=== PATIENT | male | born 1945 | race Caucasian/White ===

== ENCOUNTER 2017-04-16 16:27 | Inpatient (IN) | payer OTHER, MEDICARE ==
[~2017-04-16] VITALS: Ht 180.3 cm; Wt 79.3 kg
[~2017-04-16 16:27] MED LIST: DILA2TAB4 PO; IBUP600 PO; PROM25SU8 PO; TAMS0.4C67 PO
[2017-04-16 16:53] VITALS: BP 119/69; PULSE 110; RESP 18; TEMP 98.3; O2SAT 93
--- NOTE | 2017-04-16 17:34 | PD ---
HPI Chief Complaint: Musculoskeletal Complaint Time Seen by Provider: 17:29 Travel History International Travel<30 days: No Contact w/Intl Traveler<30days: No Traveled to known affect area: No History of Present Illness HPI 71 y/m presents to emergency department with left lower rib and left shoulder pain since yesterday. Patient denies any inciting events to cause this pain however he is concerned about a pulmonary embolism because his brother had one after a knee replacement surgery. States that the rib pain occurs with deep breaths or movement. States that he has a dull left shoulder pain that is constant and achy. States he gets muscle spasms of his calves especially in the morning but this has been a chronic issue. Patient denies cough, hemoptysis , dyspnea, orthopnea, trauma. Patient denies fever, chills, chest pain, shortness of breath, pain, abdominal pain. Denies any chronic medical issues and chronic medications. He denies recent travel, immobilizations, or surgeries. Patient follows Dr. Cole in [place]. [facility] Past Medical History Diminished Hearing: No Musculoskeletal: Yes (chronic pain) Tetanus Vaccination: Unknown ?: Not Past Surgical History Eye Surgery: Yes (bi lat cataract ) Social History Alcohol Use: No Tobacco Use: No Substance Use: No Allergies-Medications (Allergen,Severity, Reaction): Coded Allergies: No Known Allergies (Unverified , 01/21/14) Reported Meds & Prescriptions Reported Meds & Active Scripts Active Review of Systems Except as stated in HPI: all other systems reviewed are Neg Physical Exam Narrative GENERAL: Well-developed well-nourished SKIN: Focused skin assessment warm/dry. HEAD: Atraumatic. Normocephalic. EYES: Pupils equal and round. No scleral icterus. No injection or drainage. ENT: No nasal bleeding or discharge. Mucous membranes pink and moist. NECK: Trachea midline. No JVD. CARDIOVASCULAR: Regular rate and rhythm. No murmur appreciated. RESPIRATORY: No accessory muscle use. decreased breath sounds bilateral lower lobes, rhonchi bilateral upper lobes GASTROINTESTINAL: Abdomen soft, non-tender, nondistended. MUSCULOSKELETAL: No obvious deformities. No clubbing. No cyanosis. No edema. TTP of the left lower axillary ribs without crepitus. Left shoulder nontender to palpation or range of motion. Homans sign negative bilaterally. NEUROLOGICAL: Awake and alert. No obvious cranial nerve deficits. Motor grossly within normal limits. Normal speech. PSYCHIATRIC: Appropriate mood and affect; insight and judgment normal. Data Data Last Documented VS Vital Signs Date Time Temp Pulse Resp B/P (MAP) Pulse Ox O2 Delivery O2 Flow Rate FiO2 04/16/17 20:13 83 16 150/76 (100) 94 04/16/17 16:53 98.3 Orders Orders Chest, Pa & Lat (04/16/17 ) Ketorolac Inj (Toradol Inj) (04/16/17 18:15) Complete Blood Count With Diff (04/16/17 18:44) Comprehensive Metabolic Panel (04/16/17 18:44) Iv Access Insert/Monitor (04/16/17 18:44) Ecg Monitoring (04/16/17 18:44) Oximetry (04/16/17 18:44) Oxygen Administration (04/16/17 18:44) Sodium Chloride 0.9% Flush (Ns Flush) (04/16/17 18:45) Act Partial Throm Time (Ptt) (04/16/17 18:44) Prothrombin Time / Inr (Pt) (04/16/17 18:44) Ct Pulmonary Angiogram (04/16/17 ) Electrocardiogram (04/16/17 ) Bilateral Bp Monitoring (04/16/17 20:27) Sodium Chloride 0.9% Flush (Ns Flush) (04/16/17 20:30) B-Type Natriuretic Peptide (04/16/17 20:27) Ckmb (Isoenzyme) Profile (04/16/17 19:13) Magnesium (Mg) (04/16/17 19:13) Troponin I (04/16/17 19:13) Lipase (04/16/17 19:13) Iohexol 350 Inj (Omnipaque 350 Inj) (04/16/17 20:41) Enoxaparin Inj (Lovenox Inj) (04/16/17 21:30) Lipid Profile (04/17/17 06:00) Enoxaparin Inj (Lovenox Inj) (04/17/17 09:00) Budeson-Formot 160-4.5 Mg Inh (Symbicort (04/17/17 09:00) Albuterol-Ipratropium Neb (Duoneb Neb) (04/16/17 22:00) Echo 2d Comp With Doppler (04/16/17 ) Admit To Inpatient (04/16/17 ) Vital Signs (Adult) Q4H (04/16/17 21:56) Activity Oob With Assistance (04/16/17 21:56) Fitting Room Checker / Telemetry .CONTINUOUS (04/16/17 21:56) Intake + Output PJ.QSHIFT (04/16/17 21:56) Diet Regular Basic (04/17/17 Breakfast) Sodium Chloride 0.9% Flush (Ns Flush) (04/16/17 22:00) Sodium Chloride 0.9% Flush (Ns Flush) (04/17/17 09:00) Ondansetron Inj (Zofran Inj) (04/16/17 22:00) Comprehensive Metabolic Panel (04/17/17 06:00) Complete Blood Count With Diff (04/17/17 06:00) Troponin I (04/17/17 00:00) Troponin I (04/17/17 06:00) Acetaminophen (Tylenol) (04/16/17 22:00) Acetamin-Hydrocod 325-5 Mg ([place] 5-325 (04/16/17 22:00) Morphine Inj (Morphine Inj) (04/16/17 22:00) Docusate Sodium-Senna (Elsa-Colace) (04/17/17 09:00) Magnesium Hydroxide Liq (Milk Of Magnesi (04/16/17 22:00) Sennosides (Senokot) (04/16/17 22:00) Bisacodyl Supp (Dulcolax Supp) (04/16/17 22:00) Lactulose Liq (Lactulose Liq) (04/16/17 22:00) Inpatient Certification (04/16/17 ) Famotidine Inj (Pepcid Inj) (04/16/17 23:00) Lipase (04/17/17 06:00) Hemoglobin (Hgb) A1c (04/17/17 06:00) Thyroid Stimulating Hormone (04/17/17 06:00) Admit Order (Ed Use Only) (04/16/17 21:58) Labs Laboratory Tests Test 04/16/17 19:13 White Blood Count 6.8 TH/MM3 Red Blood Count 4.85 MIL/MM3 Hemoglobin 13.6 GM/DL Hematocrit 41.3 % Mean Corpuscular Volume 85.1 FL Mean Corpuscular Hemoglobin 28.1 PG Mean Corpuscular Hemoglobin Concent 33.0 % Red Cell Distribution Width 12.0 % Platelet Count 296 TH/MM3 Mean Platelet Volume 6.4 FL Neutrophils (%) (Auto) 68.4 % Lymphocytes (%) (Auto) 19.8 % Monocytes (%) (Auto) 6.5 % Eosinophils (%) (Auto) 4.8 % Basophils (%) (Auto) 0.5 % Neutrophils # (Auto) 4.8 TH/MM3 Lymphocytes # (Auto) 1.3 TH/MM3 Monocytes # (Auto) 0.4 TH/MM3 Eosinophils # (Auto) 0.3 TH/MM3 Basophils # (Auto) 0.0 TH/MM3 CBC Comment DIFF FINAL Differential Comment Prothrombin Time 10.7 SEC Prothromb Time International Ratio 1.0 RATIO Activated Partial Thromboplast Time 28.9 SEC Blood Urea Nitrogen 12 MG/DL Creatinine 1.20 MG/DL Random Glucose 90 MG/DL Total Protein 7.2 GM/DL Albumin 3.2 GM/DL Calcium Level 8.1 MG/DL Magnesium Level 2.1 MG/DL Alkaline Phosphatase 101 U/L Aspartate Amino Transf (AST/SGOT) 20 U/L Alanine Aminotransferase (ALT/SGPT) 26 U/L Total Bilirubin 0.6 MG/DL Sodium Level 137 MEQ/L Potassium Level 3.7 MEQ/L Chloride Level 102 MEQ/L Carbon Dioxide Level 29.2 MEQ/L Anion Gap 6 MEQ/L Estimat Glomerular Filtration Rate 59 ML/MIN Total Creatine Kinase 78 U/L Troponin I LESS THAN 0.02 NG/ML B-Type Natriuretic Peptide 18 PG/ML Lipase 2171 U/L [facility] Medical Decision Making Medical Screen Exam Complete: Yes Emergency Medical Condition: Yes Differential Diagnosis Costochondritis versus pneumonia versus pulmonary embolism Left shoulder contusion versus strain versus sprain Narrative Course 71-year-old male presents to emergency department complaining of left shoulder pain and left lower axillary rib pain since yesterday. States that he is concerned about his symptoms because his brother had a pulmonary embolism post TKA. Pt denies fever, chills, chest pain, cough, shortness of breath, orthopnea , nausea, vomiting, diarrhea. Also denies recent travel, immobilization, surgeries, fractures. Patient initially denied any medical history but after the labs returned, admitted to hypertriglyceridemia and elevated lipase. Patient states his heart rate runs between 80 and 105 normally. Physical exam demonstrated there is palpation of the lower left axillary ribs. Shoulder exam unremarkable- unable to elicit the pain patient describes. Bilateral lungs, decreased breath sounds lower lobes with rhonchi. Chest x-ray demonstrates diffuse infiltrate and effusions. Vital signs- initially tachycardic but stabilized at 88. SaO2 93-94 consistently. BP WNL. EKG- RBBB, unknown age of this Labs- elevated lipase over 2100. CT pulmonary angiogram demonstrates bilateral pulmonary embolism. Will initiate Lovenox 80 units. Will admit for non-massive pulmonary embolus. Diagnosis Primary Impression: Pulmonary embolism Qualified Codes: I26.99 - Other pulmonary embolism without acute cor pulmonale Additional Impression: Elevated lipase Admitting Information Admitting Physician Requests: Admit Condition: Stable Jessica Costello Apr 16, 2017 17:34
[2017-04-16] MEDS ORDERED: KETOROLAC TROMETHAMINE 60 MG/2 ML (IM) VIAL IM ONE (18:15)
--- NOTE | 2017-04-16 18:24 | RADRPT ---
EXAM DATE/TIME: 04/16/2017 18:07 [facility] COMPARISON: No previous studies available for comparison. INDICATIONS : Chest and rib pain from unknown injury. MEDICAL HISTORY : None. SURGICAL HISTORY : None. ENCOUNTER: Initial ACUITY: 1 day PAIN SCORE: 10/10 LOCATION: Bilateral chest FINDINGS: Bilateral basilar infiltrates and effusions. Visualized cardiac contours are grossly satisfactory. Th oracic skeleton is grossly intact. CONCLUSION: Bibasilar infiltrates and effusions Bk Dodd MD on April 16, 2017 at 18:21 Board Certified Radiologist. This report was verified electronically.
[2017-04-16] MEDS ORDERED: SODIUM CHLORIDE 0.9% FLUSH 10 ML FLUSH IVF PRN ×2 (18:45→20:30)
[2017-04-16 19:18] VITALS: O2SAT 95
[2017-04-16 19:23] LABS: AUTOMATED NEUTROPHIL # 4.8 TH/MM3 (1.8-7.7); BASOPHIL % 0.5 % (0.0-2.0); EOSINOPHIL # 0.3 TH/MM3 (0-0.4); EOSINOPHIL % 4.8 % (0.0-4.0); HEMATOCRIT 41.3 % (39.0-51.0); HEMO FLAGS DIFF FINAL; LYMPH % 19.8 % (9.0-44.0); LYMPHOCYTE # 1.3 TH/MM3 (1.0-4.8); MEAN CELL VOLUME 85.1 FL (80.0-100.0); MEAN CORPUSCULAR HEMOGLOBIN 28.1 PG (27.0-34.0); MONO % 6.5 % (0.0-8.0); NEUT % 68.4 % (16.0-70.0); PLATELET COUNT 296 TH/MM3 (150-450); RED BLOOD COUNT 4.85 MIL/MM3 (4.50-5.90); WHITE BLOOD COUNT 6.8 TH/MM3 (4.0-11.0)
[2017-04-16 19:28] LABS: CHLORIDE 102 MEQ/L (98-107); POTASSIUM 3.7 MEQ/L (3.5-5.1); SODIUM (NA) 137 MEQ/L (136-145)
[2017-04-16 19:32] LABS: ANION GAP 6 MEQ/L (5-15); BICARBONATE 29.2 MEQ/L (21.0-32.0); BLOOD UREA NITROGEN 12 MG/DL (7-18)
[2017-04-16 19:34] LABS: APTT (PATIENT) 28.9 SEC (24.3-30.1); PROTHROMBIN TIME - PATIENT 10.7 SEC (9.8-11.6)
[2017-04-16 19:35] LABS: ALT (GPT) 26 U/L (12-78); AST (GOT) 20 U/L (15-37)
[2017-04-16 19:36] LABS: GLOMERULAR FILTRATION RATE 59 ML/MIN (>89)
[2017-04-16 19:37] LABS: TOTAL BILIRUBIN ADULT 0.6 MG/DL (0.2-1.0)
[2017-04-16 19:38] LABS: ALKALINE PHOSPHATASE 101 U/L (45-117)
[2017-04-16 20:13] VITALS: BP 150/76; PULSE 83; RESP 16; O2SAT 94
[2017-04-16 20:40] LABS: MAGNESIUM 2.1 MG/DL (1.5-2.5)
[2017-04-16] MEDS ORDERED: IOHEXOL 350 MG/ML 10 ML VIAL (for RAD DIAG) IVCONTRAST ONE (20:41)
[2017-04-16 20:47] LABS: CREATINE KINASE 78 U/L (39-308)
--- NOTE | 2017-04-16 21:05 | RADRPT ---
EXAM DATE/TIME: 04/16/2017 20:30 [facility] COMPARISON: No previous studies available for comparison. INDICATIONS : Right shoulder and right upper back pain. IV CONTRAST: 65 cc Omnipaque 350 (iohexol) IV RADIATION DOSE: 12.64 CTDIvol (mGy) MEDICAL HISTORY : None SURGICAL HISTORY : None. ENCOUNTER: Initial ACUITY: 1 day PAIN SCALE: 7/10 LOCATION: Right chest TECHNIQUE: Volumetric scanning of the chest was performed using a pulmonary embolism protocol MIP images were re constructed. Using automated exposure control and adjustment of the mA and/or kV according to patien t size, radiation dose was kept as low as reasonably achievable to obtain optimal diagnostic quality images. DICOM format image data is available electronically for review and comparison. Follow-up recommendations for detected pulmonary nodules are based at a minimum on nodule size and pa tient risk factors according to Fleischner Society Guidelines. FINDINGS: PULMONARY ARTERIES: There are filling defects in the upper and lower lobe pulmonary branch vessels on the right and in lo wer lobe branch vessels on the left.. No large central clot is identified. LUNGS: There are consolidative changes in the posterior lung bases bilaterally and to a mild degree in the l ingula. Mild basilar bronchiectasis. PLEURAE: Small left effusion MEDIASTINUM: Nonspecific prominence of central mediastinal lymph nodes. MUSCULOSKELETAL: Within normal limits for patient age. CONCLUSION: Bilateral pulmonary embolism Bk Dodd MD on April 16, 2017 at 21:01 Board Certified Radiologist. This report was verified electronically.
[2017-04-16] MEDS ORDERED: ENOXAPARIN SODIUM 80 MG/0.8 ML SYRINGE SQ ONE (21:30)
[2017-04-16] MEDS ORDERED: BISACODYL 10 MG SUPP RECTAL PRN (22:00)
[2017-04-16] MEDS ORDERED: SENNOSIDES 8.6 MG TAB PO PRN (22:00)
[2017-04-16] MEDS ORDERED: SODIUM CHLORIDE 0.9% FLUSH 10 ML FLUSH IV FLUSH PRN (22:00)
[2017-04-16] MEDS ORDERED: ACETAMINOPHEN 325 MG TAB PO PRN (22:00)
[2017-04-16] MEDS ORDERED: MAGNESIUM HYDROXIDE SUSP 30 ML CUP PO PRN (22:00)
[2017-04-16] MEDS ORDERED: LACTULOSE SYRUP 20 GM/30 ML CUP PO PRN (22:00)
[2017-04-16] MEDS ORDERED: RESP: ALBUTEROL 2.5 MG/IPRATROPIUM 0.5 MG NEB (PRN) NEB (22:00)
[2017-04-16] MEDS ORDERED: ACETAMINOPHEN/HYDROcodone 325 MG/5 MG TAB PO PRN (22:00)
[2017-04-16] MEDS ORDERED: ONDANSETRON HCL 4 MG/2 ML VIAL IVP PRN (22:00)
[2017-04-16] MEDS ORDERED: MORPHINE SULFATE 4 MG/ML INJ IV PUSH PRN (22:00)
[2017-04-16 22:38] VITALS: BP 130/80; PULSE 90; RESP 16; O2SAT 93
--- NOTE | 2017-04-16 22:49 | PD ---
Data Data Last Documented VS Vital Signs Date Time Temp Pulse Resp B/P (MAP) Pulse Ox O2 Delivery O2 Flow Rate FiO2 04/16/17 20:13 83 16 150/76 (100) 94 04/16/17 16:53 98.3 Orders Orders Chest, Pa & Lat (04/16/17 ) Ketorolac Inj (Toradol Inj) (04/16/17 18:15) Complete Blood Count With Diff (04/16/17 18:44) Comprehensive Metabolic Panel (04/16/17 18:44) Iv Access Insert/Monitor (04/16/17 18:44) Ecg Monitoring (04/16/17 18:44) Oximetry (04/16/17 18:44) Oxygen Administration (04/16/17 18:44) Sodium Chloride 0.9% Flush (Ns Flush) (04/16/17 18:45) Act Partial Throm Time (Ptt) (04/16/17 18:44) Prothrombin Time / Inr (Pt) (04/16/17 18:44) Ct Pulmonary Angiogram (04/16/17 ) Electrocardiogram (04/16/17 ) Bilateral Bp Monitoring (04/16/17 20:27) Sodium Chloride 0.9% Flush (Ns Flush) (04/16/17 20:30) B-Type Natriuretic Peptide (04/16/17 20:27) Ckmb (Isoenzyme) Profile (04/16/17 19:13) Magnesium (Mg) (04/16/17 19:13) Troponin I (04/16/17 19:13) Lipase (04/16/17 19:13) Iohexol 350 Inj (Omnipaque 350 Inj) (04/16/17 20:41) Enoxaparin Inj (Lovenox Inj) (04/16/17 21:30) Lipid Profile (04/17/17 06:00) Enoxaparin Inj (Lovenox Inj) (04/17/17 09:00) Budeson-Formot 160-4.5 Mg Inh (Symbicort (04/17/17 09:00) Albuterol-Ipratropium Neb (Duoneb Neb) (04/16/17 22:00) Echo 2d Comp With Doppler (04/16/17 ) Admit To Inpatient (04/16/17 ) Vital Signs (Adult) Q4H (04/16/17 21:56) Activity Oob With Assistance (04/16/17 21:56) Credit Risk Manager / Telemetry .CONTINUOUS (04/16/17 21:56) Intake + Output PJ.QSHIFT (04/16/17 21:56) Diet Regular Basic (04/17/17 Breakfast) Sodium Chloride 0.9% Flush (Ns Flush) (04/16/17 22:00) Sodium Chloride 0.9% Flush (Ns Flush) (04/17/17 09:00) Ondansetron Inj (Zofran Inj) (04/16/17 22:00) Comprehensive Metabolic Panel (04/17/17 06:00) Complete Blood Count With Diff (04/17/17 06:00) Troponin I (04/17/17 00:00) Troponin I (04/17/17 06:00) Acetaminophen (Tylenol) (04/16/17 22:00) Acetamin-Hydrocod 325-5 Mg ([place] 5-325 (04/16/17 22:00) Morphine Inj (Morphine Inj) (04/16/17 22:00) Docusate Sodium-Senna (Elsa-Colace) (04/17/17 09:00) Magnesium Hydroxide Liq (Milk Of Magnesi (04/16/17 22:00) Sennosides (Senokot) (04/16/17 22:00) Bisacodyl Supp (Dulcolax Supp) (04/16/17 22:00) Lactulose Liq (Lactulose Liq) (04/16/17 22:00) Inpatient Certification (04/16/17 ) Famotidine Inj (Pepcid Inj) (04/16/17 23:00) Lipase (04/17/17 06:00) Hemoglobin (Hgb) A1c (04/17/17 06:00) Thyroid Stimulating Hormone (04/17/17 06:00) Admit Order (Ed Use Only) (04/16/17 21:58) Labs Laboratory Tests Test 04/16/17 19:13 White Blood Count 6.8 TH/MM3 Red Blood Count 4.85 MIL/MM3 Hemoglobin 13.6 GM/DL Hematocrit 41.3 % Mean Corpuscular Volume 85.1 FL Mean Corpuscular Hemoglobin 28.1 PG Mean Corpuscular Hemoglobin Concent 33.0 % Red Cell Distribution Width 12.0 % Platelet Count 296 TH/MM3 Mean Platelet Volume 6.4 FL Neutrophils (%) (Auto) 68.4 % Lymphocytes (%) (Auto) 19.8 % Monocytes (%) (Auto) 6.5 % Eosinophils (%) (Auto) 4.8 % Basophils (%) (Auto) 0.5 % Neutrophils # (Auto) 4.8 TH/MM3 Lymphocytes # (Auto) 1.3 TH/MM3 Monocytes # (Auto) 0.4 TH/MM3 Eosinophils # (Auto) 0.3 TH/MM3 Basophils # (Auto) 0.0 TH/MM3 CBC Comment DIFF FINAL Differential Comment Prothrombin Time 10.7 SEC Prothromb Time International Ratio 1.0 RATIO Activated Partial Thromboplast Time 28.9 SEC Blood Urea Nitrogen 12 MG/DL Creatinine 1.20 MG/DL Random Glucose 90 MG/DL Total Protein 7.2 GM/DL Albumin 3.2 GM/DL Calcium Level 8.1 MG/DL Magnesium Level 2.1 MG/DL Alkaline Phosphatase 101 U/L Aspartate Amino Transf (AST/SGOT) 20 U/L Alanine Aminotransferase (ALT/SGPT) 26 U/L Total Bilirubin 0.6 MG/DL Sodium Level 137 MEQ/L Potassium Level 3.7 MEQ/L Chloride Level 102 MEQ/L Carbon Dioxide Level 29.2 MEQ/L Anion Gap 6 MEQ/L Estimat Glomerular Filtration Rate 59 ML/MIN Total Creatine Kinase 78 U/L Troponin I LESS THAN 0.02 NG/ML B-Type Natriuretic Peptide 18 PG/ML Lipase 2171 U/L [facility] Supervised Visit with NELSON: Yes Narrative Course The history, exam, and medical decision-making in the associated midlevel provider note were completed with my assistance. I reviewed and agree with the findings presented. I attest that I had a [id number] encounter with the patient on the same day, and personally performed and documented my assessment and findings in the medical record. *My assessment and Findings: This is a 71-year-old male who presents to the emergency department with pleuritic chest discomfort that's been present since yesterday. Chest x-ray initially demonstrated pleural effusions. A CT pulmonary angiogram was performed given the patient's description of the symptoms which demonstrated bilateral pulmonary emboli. His vital signs are reassuring and his troponin is normal. He will be admitted for anticoagulation. Diagnosis Primary Impression: Pulmonary embolism Qualified Codes: I26.99 - Other pulmonary embolism without acute cor pulmonale Additional Impression: Elevated lipase Condition: Stable Camille Flowers MD Apr 16, 2017 22:49
[2017-04-16 23:34] VITALS: PULSE 96
[2017-04-16 23:35] VITALS: BP 148/79; PULSE 96; RESP 20; TEMP 97.5; O2SAT 93
[2017-04-17] VITALS (11 sets, daily range): BP systolic 115–154; BP diastolic 56–98; PULSE 74–96; RESP 20–23; TEMP 97.5–98.3; O2SAT 92–96
[2017-04-17] MEDS: FAMOTIDINE 20 MG/2 ML VIAL IV PUSH SCH ×2 (00:39→11:03)
[2017-04-17 05:20] LABS: BASOPHIL # 0.1 TH/MM3 (0-0.2); BASOPHIL % 0.8 % (0.0-2.0); EOSINOPHIL # 0.4 TH/MM3 (0-0.4); EOSINOPHIL % 5.7 % (0.0-4.0); HEMATOCRIT 38.4 % (39.0-51.0); HEMO FLAGS DIFF FINAL; LYMPH % 26.4 % (9.0-44.0); LYMPHOCYTE # 1.8 TH/MM3 (1.0-4.8); MEAN CELL VOLUME 85.7 FL (80.0-100.0); MEAN CORPUSCULAR HEMOGLOBIN 28.8 PG (27.0-34.0); MEAN CORPUSCULAR HGB CONC 33.6 % (32.0-36.0); MONO % 6.3 % (0.0-8.0); NEUT % 60.8 % (16.0-70.0); PLATELET COUNT 245 TH/MM3 (150-450); RED BLOOD COUNT 4.48 MIL/MM3 (4.50-5.90); RED CELL DISTRIBUTION WIDTH 12.6 % (11.6-17.2); WHITE BLOOD COUNT 6.7 TH/MM3 (4.0-11.0)
[2017-04-17 05:27] LABS: CHLORIDE 103 MEQ/L (98-107); POTASSIUM 3.6 MEQ/L (3.5-5.1); SODIUM (NA) 138 MEQ/L (136-145)
[2017-04-17 05:31] LABS: ANION GAP 6 MEQ/L (5-15); BICARBONATE 29.4 MEQ/L (21.0-32.0)
[2017-04-17 05:32] LABS: BLOOD UREA NITROGEN 12 MG/DL (7-18)
[2017-04-17 05:34] LABS: ALT (GPT) 23 U/L (12-78); AST (GOT) 16 U/L (15-37); GLOMERULAR FILTRATION RATE 59 ML/MIN (>89)
[2017-04-17 05:36] LABS: TOTAL BILIRUBIN ADULT 0.6 MG/DL (0.2-1.0)
[2017-04-17 05:37] LABS: ALKALINE PHOSPHATASE 89 U/L (45-117)
[2017-04-17] MEDS ORDERED: SODIUM CHLORIDE 0.9% FLUSH 10 ML FLUSH IV FLUSH SCH (09:00)
[2017-04-17] MEDS ORDERED: ENOXAPARIN SODIUM 80 MG/0.8 ML SYRINGE SQ SCH (09:00)
[2017-04-17] MEDS ORDERED: DOCUSATE SODIUM 50 MG/SENNA 8.6 MG TAB PO SCH (09:00)
[2017-04-17] MEDS ORDERED: BUDESONIDE-FORMOTEROL 160/4.5 MCG INHALER INH SCH (09:00)
[2017-04-17 11:18] LABS: HDL CHOLESTEROL 41.3 MG/DL (40.0-60.0); LDL CHOLESTEROL 126 MG/DL (0-99)
--- NOTE | 2017-04-17 11:56 | ECHRPT ---
Indication: Heart failure, unspecified, Bi lat PE, eval for strain CONCLUSIONS Normal left ventricular size. Wall thickness is measured at the upper limits of normal. The left ventricular systolic function is low normal with an estimated ejection fraction of 50%. No definite wall motion abnormalities. There is trace tricuspid valve regurgitation. The estimated pulmonary arterial pressure is 26 mmHg. BP: / HR: Rhythm: MEASUREMENTS (Male / Female) Normal Values Technical Quality:Good 2D ECHO LV Diastolic Diameter PLAX 4.1 cm 4.2 - 5.9 / 3.9 - 5.3 cm LV Systolic Diameter PLAX 3.4 cm IVS Diastolic Thickness 1.1 cm 0.6 - 1.0 / 0.6 - 0.9 cm LVPW Diastolic Thickness 0.7 cm 0.6 - 1.0 / 0.6 - 0.9 cm LV Relative Wall Thickness 0.4 RV Internal Dim ED PLAX 1.8 cm LA Systolic Diameter LX 3.2 cm 3.0 - 4.0 / 2.7 - 3.8 cm M-MODE Aortic Root Diameter MM 3.6 cm DOPPLER Mitral E Point Velocity 75.0 cm/s Mitral A Point Velocity 95.3 cm/s Mitral E to A Ratio 0.8 LV E' Lateral Velocity 6.9 cm/s Mitral E to LV E' Lateral Ratio 10.8 LV E' Septal Velocity 6.2 cm/s Mitral E to LV E' Septal Ratio 12.0 TR Peak Velocity 147.0 cm/s TR Peak Gradient 16.0 mmHg Right Atrial Pressure 10.0 mmHg Pulmonary Artery Systolic Pressu 18.6 mmHg Right Ventricular Systolic Press 18.6 mmHg FINDINGS LEFT VENTRICLE Normal left ventricular size. Wall thickness is measured at the upper limits of normal. The left ventricular systolic function is low normal with an estimated ejection fraction 50%. No def inite wall motion abnormalities. RIGHT VENTRICLE The right ventricular systoilc function is normal. LEFT ATRIUM The left atrial size is normal. RIGHT ATRIUM The right atrial size is normal. ATRIAL SEPTUM Normal atrial septal thickness without atrial level shunting by limited color doppler interrogation. AORTA The aortic root and proximal ascending aorta are normal in size on limited imaging. MITRAL VALVE Structurally normal mitral valve. No mitral valve stenosis or regurgitation. AORTIC VALVE Trileaflet aortic valve. No aortic valve stenosis or regurgitation. TRICUSPID VALVE There is trace tricuspid valve regurgitation. The estimated pulmonary arterial pressure is 26 mmHg. PULMONARY VALVE No pulmonary valve regurgitation or stenosis. VESSELS The inferior vena cava is normal in size. PERICARDIUM No pericardial effusion. Flo Sainz MD (Electronically Signed) Final Date:17 April 2017 11:55
[2017-04-17] MEDS ORDERED: XARE20TA PO (14:07)
[2017-04-17] MEDS ORDERED: XARE15TA PO (14:07)
[2017-04-17] MEDS ORDERED: VENTAER INH (14:07)
--- NOTE | 2017-04-17 14:10 | HHI.DCPOC ---
Discharge Care Plan Diagnosis: (1) Pulmonary embolism (2) Elevated lipase (3) Community acquired pneumonia Goals to Promote Your Health * To prevent worsening of your condition and complications * To maintain your health at the optimal level Directions to Meet Your Goals Take your medications as prescribed Follow your dietary instruction Follow activity as directed Keep your appointments as scheduled Take your immunizations and boosters as scheduled If your symptoms worsen call your PCP, if no PCP go to Urgent Care Center or Emergency Room Smoking is Dangerous to Your Health. Avoid second hand smoke Call the 24-hour hour crisis hotline for domestic abuse at Calvin Dumont DO Apr 17, 2017 14:10
[2017-04-17] MEDS ORDERED: AZIT250T3 PO (14:12)
[2017-04-17] MEDS ORDERED: CEFU1TAB20 PO (14:12)
--- NOTE | 2017-04-17 14:23 | HHI.HP ---
[facility] Service [facility] Primary Care Physician Suhas Cole M.D. Admission Diagnosis Pulmonary Embolism Diagnoses: Chief Complaint: Back pain Travel History International Travel<30 Days: No Contact w/Intl Traveler <30 Da: No Traveled to Known Affected Are: No History of Present Illness The patient is a 71-year-old male with no significant past medical history who is presenting to the hospital with back pain. The pain started yesterday and he is not sure what caused it. He said the pain is located on the left side of his back and would get worse when he took a deep breath. He says his brother had similar symptoms when he had a pulmonary embolism secondary to a knee replacement. The patient was concerned and came to the hospital for further evaluation. He said he received an anti-inflammatory injection and his symptoms have mostly resolved. He denies any left-sided back pain. He says breathing is much easier. He has been ambulating. He says he has not been requiring any oxygen. 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 He says he tries to take break in between. He denies any weight loss. He denies any night sweats. He is interested in going home. Discussed with nursing. Review of Systems Except as stated in HPI: all other systems reviewed are Neg Past Family Social History Past Medical History The patient denies pertinent medical history Allergies: Coded Allergies: No Known Allergies (Unverified , 01/21/14) Active Ordered Medications Current Medications Medications (Trade) Dose Ordered Sig/Latanya Route Start Time Stop Time Status Last Admin (NS Flush) 2 ml UNSCH PRN IVF 04/16/17 20:30 (Lovenox Inj) 80 mg Q12H SQ 04/17/17 09:00 04/17/17 09:12 (Symbicort 160-4.5 Inh) 2 puff Q12HR INH 04/17/17 09:00 (Duoneb Neb) 1 ampule Q2HR NEB PRN NEB 04/16/17 22:00 (NS Flush) 2 ml UNSCH PRN IV FLUSH 04/16/17 22:00 (NS Flush) 2 ml BID IV FLUSH 04/17/17 09:00 04/17/17 09:12 (Zofran Inj) 4 mg Q6H PRN IVP 04/16/17 22:00 (Tylenol) 650 mg Q6H PRN PO 04/16/17 22:00 ([place] 5-325 Mg) 1 tab Q4H PRN PO 04/16/17 22:00 (Morphine Inj) 2 mg Q3H PRN IV PUSH 04/16/17 22:00 (Elsa-Colace) 1 tab BID PO 04/17/17 09:00 04/17/17 09:12 (Milk Of Magnesia Liq) 30 ml Q12H PRN PO 04/16/17 22:00 (Senokot) 17.2 mg Q12H PRN PO 04/16/17 22:00 (Dulcolax Supp) 10 mg DAILY PRN RECTAL 04/16/17 22:00 (Lactulose Liq) 30 ml DAILY PRN PO 04/16/17 22:00 (Pepcid Inj) 20 mg Q12H IV PUSH 04/16/17 23:00 04/17/17 11:03 Family History The patient denies pertinent family history. Social History The patient quit smoking many years ago. He does not drink alcohol. Physical Exam Vital Signs Vital Signs Date Time Temp Pulse Resp B/P (MAP) Pulse Ox O2 Delivery O2 Flow Rate FiO2 04/17/17 12:22 97.6 87 20 121/73 (89) 94 04/17/17 11:00 84 04/17/17 10:00 92 04/17/17 09:00 86 04/17/17 08:45 97.7 84 23 154/98 (116) 92 04/17/17 08:00 96 Nasal Cannula 2.00 04/17/17 08:00 74 04/17/17 05:53 86 04/17/17 05:49 98.3 88 20 115/56 (75) 95 04/17/17 02:00 93 Nasal Cannula 2.00 04/17/17 00:43 97.5 96 23 153/78 (103) 93 04/17/17 00:08 80 04/16/17 23:35 97.5 96 20 148/79 (102) 93 04/16/17 23:34 96 10/25/17 23:20 04/16/17 22:38 90 16 130/80 (97) 93 04/16/17 20:13 83 16 150/76 (100) 94 04/16/17 19:18 95 04/16/17 16:53 98.3 110 18 119/69 (86) 93 Physical Exam GENERAL: This is a well-nourished, well-developed patient, in no apparent distress. SKIN: No rashes, ecchymoses or lesions. Cool and dry. HEAD: Atraumatic. Normocephalic. No temporal or scalp tenderness. EYES: Pupils equal round and reactive. Extraocular motions intact. No scleral icterus. No injection or drainage. ENT: Nose without bleeding, purulent drainage or septal hematoma. Throat without erythema, tonsillar hypertrophy or exudate. Uvula midline. Airway patent. NECK: Trachea midline. No JVD or lymphadenopathy. Supple, nontender, no meningeal signs. CARDIOVASCULAR: Regular rate and rhythm without murmurs, gallops, or rubs. RESPIRATORY: Clear to auscultation. Breath sounds equal bilaterally. No wheezes , rales, or rhonchi. GASTROINTESTINAL: Abdomen soft, non-tender, nondistended. No hepato-splenomegaly , or palpable masses. No guarding. MUSCULOSKELETAL: Extremities without clubbing, cyanosis, or edema. No joint tenderness, effusion, or edema noted. NEUROLOGICAL: Awake and alert. Cranial nerves II through XII intact. Motor and sensory grossly within normal limits. Five out of 5 muscle strength in all muscle groups. Normal speech. PSYCH: Mood and affect appropriate. Laboratory Laboratory Tests Test 04/16/17 19:13 04/17/17 00:00 04/17/17 04:25 White Blood Count 6.8 6.7 Red Blood Count 4.85 4.48 Hemoglobin 13.6 12.9 Hematocrit 41.3 38.4 Mean Corpuscular Volume 85.1 85.7 Mean Corpuscular Hemoglobin 28.1 28.8 Mean Corpuscular Hemoglobin Concent 33.0 33.6 Red Cell Distribution Width 12.0 12.6 Platelet Count 296 245 Mean Platelet Volume 6.4 6.9 Neutrophils (%) (Auto) 68.4 60.8 Lymphocytes (%) (Auto) 19.8 26.4 Monocytes (%) (Auto) 6.5 6.3 Eosinophils (%) (Auto) 4.8 5.7 Basophils (%) (Auto) 0.5 0.8 Neutrophils # (Auto) 4.8 4.0 Lymphocytes # (Auto) 1.3 1.8 Monocytes # (Auto) 0.4 0.4 Eosinophils # (Auto) 0.3 0.4 Basophils # (Auto) 0.0 0.1 CBC Comment DIFF FINAL DIFF FINAL Differential Comment Prothrombin Time 10.7 Prothromb Time International Ratio 1.0 Activated Partial Thromboplast Time 28.9 Blood Urea Nitrogen 12 12 Creatinine 1.20 1.20 Random Glucose 90 88 Total Protein 7.2 6.6 Albumin 3.2 2.8 Calcium Level 8.1 8.3 Magnesium Level 2.1 Alkaline Phosphatase 101 89 Aspartate Amino Transf (AST/SGOT) 20 16 Alanine Aminotransferase (ALT/SGPT) 26 23 Total Bilirubin 0.6 0.6 Sodium Level 137 138 Potassium Level 3.7 3.6 Chloride Level 102 103 Carbon Dioxide Level 29.2 29.4 Anion Gap 6 6 Estimat Glomerular Filtration Rate 59 59 Total Creatine Kinase 78 Troponin I LESS THAN 0.02 LESS THAN 0.02 LESS THAN 0.02 B-Type Natriuretic Peptide 18 Lipase 2171 789 Triglycerides Level 130 Cholesterol Level 193 LDL Cholesterol 126 HDL Cholesterol 41.3 Cholesterol/HDL Ratio 4.67 Thyroid Stimulating Hormone 3rd Gen 1.720 Result Diagram: 04/17/175 04/17/17 0425 Imaging Last Impressions Chest X-Ray 04/16/17 0000 Signed Impressions: Service Date/Time: Sunday, April 16, 2017 18:07 - CONCLUSION: Bibasilar infiltrates and effusions Bk Dodd MD CT Angiography 04/16/17 0000 Signed Impressions: Service Date/Time: Sunday, April 16, 2017 20:30 - CONCLUSION: Bilateral pulmonary embolism Bk Dodd MD Caprini VTE Risk Assessment Caprini VTE Risk Assessment: Mod/High Risk (score >= 2) Caprini Risk Assessment Model Point Value = 1 Point Value = 2 Point Value = 3 Point Value = 5 Age 41-60 Minor surgery BMI > 25 kg/m2 Swollen legs Varicose veins or History of unexplained or recurrent spontaneous Oral contraceptives or hormone replacement Sepsis (< 1 month) Serious lung disease, including pneumonia (< 1 month) Abnormal pulmonary function Acute myocardial infarction Congestive heart failure (< 1 month) History of inflammatory bowel disease Medical patient at bed rest Age 61-74 Arthroscopic surgery Major open surgery (> 45 min) Laparoscopic surgery (> 45 min) Malignancy Confined to bed (> 72 hours) Immobilizing plaster cast Central venous access Age >= 75 History of VTE Family history of VTE Factor V Leiden Prothrombin [id number] Lupus anticoagulant Anticardiolipin antibodies Elevated serum homocysteine Heparin-induced thrombocytopenia Other congenital or acquired thrombophilia Stroke (< 1 month) Elective arthroplasty Hip, pelvis, or leg fracture Acute spinal cord injury (< 1 month) Prophylaxis Regimen Total Risk Factor Score Risk Level Prophylaxis Regimen 0-1 Low Early ambulation 2 Moderate Order ONE of the following: *Sequential Compression Device (SCD) *Heparin 5000 units SQ BID 3-4 Higher Order ONE of the following medications: *Heparin 5000 units SQ TID *Enoxaparin/Lovenox 40 mg SQ daily (WT < 150 kg, CrCl > 30 mL/min) *Enoxaparin/Lovenox 30 mg SQ daily (WT < 150 kg, CrCl > 10-29 mL/min) *Enoxaparin/Lovenox 30 mg SQ BID (WT < 150 kg, CrCl > 30 mL/min) AND/OR *Sequential Compression Device (SCD) 5 or more Highest Order ONE of the following medications: *Heparin 5000 units SQ TID (Preferred with Epidurals) *Enoxaparin/Lovenox 40 mg SQ daily (WT < 150 kg, CrCl > 30 mL/min) *Enoxaparin/Lovenox 30 mg SQ daily (WT < 150 kg, CrCl > 10-29 mL/min) *Enoxaparin/Lovenox 30 mg SQ BID (WT < 150 kg, CrCl > 30 mL/min) AND *Sequential Compression Device (SCD) Assessment and Plan Assessment and Plan Bilateral pulmonary emboli Noted on CT scan of the chest. The patient was started on Lovenox twice a day. No obvious provoking incident. He does do a lot of driving which could have caused DVTs leading to pulmonary emboli. His brother did have a pulmonary embolism but that was secondary to knee surgery. - We went over multiple anticoagulation regimens and he was agreeable with being discharged on Xarelto. - Home oxygen walk test has been requested prior to discharge. Home oxygen will be arranged if needed. - Albuterol as needed. - We will refer the patient to hematology for further workup and guidance on duration of therapy. Community-acquired pneumonia Noted on imaging. - Complete course of Ceftin and azithromycin. - albuterol and oxygen as needed. - follow up with PCP. Elevated lipase level Decreasing lipase level. Tolerating a diet and not indicating abdominal pain at this time. TGL level not elevated. - outpt follow-up. - ADAT. PPx: Lovenox to be switched to Xarelto Discussed Condition With Pt, nurse Physician Certification 2 Midnight Certification Type: Admission for Inpatient Services Order for Inpatient Services The services are ordered in accordance with Medicare regulations or non- Medicare payer requirements, as applicable. In the case of services not specified as inpatient-only, they are appropriately provided as inpatient services in accordance with the 2-midnight benchmark. Estimated LOS (days): 1 days is the estimated time the patient will need to remain in the hospital, assuming treatment plan goals are met and no additional complications. Post-Hospital Plan: Home Calvin Dumont DO Apr 17, 2017 14:23
--- NOTE | 2017-04-17 14:47 | EKG ---
Date Performed: 04/16/2017 Time Performed: 20:42:52 PTAGE: 71 years EKG: Sinus rhythm MARKED LEFT AXIS DEVIATION RIGHT BUNDLE BRANCH BLOCK ABNORMAL ECG NO PREVIOUS TRACING DOCTOR: Srideiv Conway Interpretating Date/Time 04/17/2017 14:44:28
[2017-04-17 16:07] LABS: HEMOGLOBIN A1a 0.8 %; HEMOGLOBIN A1b 1.9 %; HEMOGLOBIN Ao 85.5 %; HEMOGLOBIN LA1C 1.8 %; HEMOGLOBIN P3 3.6 %
== END 2017-04-17 15:40 | disposition home or self-care (01) | DRG 175 ==
LOC: PHEFT 16:27 → PHEDA 22:05 → PHICU 23:17
PROVIDERS: ADMIT Hospitalist; ATTEND Hospitalist
DX: I26.99 Other pulmonary embolism without acute cor pulmonale (principal); J18.9 Pneumonia, unspecified organism; I45.10 Unspecified right bundle-branch block; R74.8 Abnormal levels of other serum enzymes; Z87.891 Personal history of nicotine dependence
CPT/HCPCS: 71020; 71275; 80053; 80061; 82550; 83036; 83690; 83735; 83880; 84443; 84484; 85025; 85610; 85730; 93005; 93306; 94620; J1650; J1885; Q9967